=== PATIENT | female | born 1975 | race Caucasian/White ===

== ENCOUNTER → 2018-11-15 22:51 | Outpatient (CLI) | payer OTHER, SELFPAY ==
[2016-08-14 06:36] VITALS: BMI 48.6
[2018-11-20 08:43] LABS: HPV Reflexed? NOT INDICATED
--- OUTSIDE RECORDS SUMMARY | 2019-02-17 06:34 | XMS RPT_ITS ---
:1975 Author Organization [facility] Care Team Providers Name Role Phone Shae Choudhary Attending Unavailable Shae Choudhary Referring Unavailable PROBLEMS PROBLEMS DATE TYPE CONDITION / CODE ATTENDING STATUS SOURCE 11/16/2018 Unknown Z01.419 - Encounter Ami Choudhary for gynecological [facility] (general) (routine) Repository without abnormal findings / Z01.419(ICD-10) PROCEDURES PROCEDURES No Procedure Records FoundRESULTS RESULTS PAP I-G W/RFX HRHPV Collected: 11/15/2018 Status: F Source: YULISSA 4:15 PM [facility] REPOSITORY Order Comment: CYTOLOGY INFORMATION: - CLINICAL INFORMATION: - DATE LMP/MENOPAUSE: 2017 LMP - COLLECTION VIAL: Thin Prep Vial - CHILD ADVOCATE SOURCE: CERVICAL/ENDOCERVICAL/VAGINAL - COLLECTION TECHNIQUE: BRUSH/SPATULA Specimen Comment: [id number] Specimen Comment: Source.............Cervix;Endocervix;Vagina Specimen Comment: Dates / Results....LMP:2017 Specimen Comment: No. of containers..01 ThinPrep Vial TYPE CODE TESTS RESULT OUT OF RANGE REFERENCE UNITS LAB L7400.0800 . Normal DIAGN Comment Result Comment: NEGATIVE FOR INTRAEPITHELIAL LESION AND MALIGNANCY. THIS SPECIMEN WAS RESCREENED PART OF OUR A R SPECIALIST PROGRAM. LAB L7400.0900 . Normal ADEQ Comment Result Comment: Satisfactory for evaluation. Endocervical and/or squamous metaplastic cells (endocervical component) are present. LAB L7400.1400 . Normal PERFORM Comment Result Comment: Yue Hicks, Technical Staff Engineer (ASCP) LAB L7400.1500 . Normal QC Comment REV Result Comment: Conchis Man, Supervisory Technical Staff Engineer (ASCP) LAB L7400.2575 . Normal TEST METHOD Comment Result Comment: This liquid based ThinPrep(R) pap test was screened with the use of an image guided system. LAB L7400.2600 . Normal . COMM LAB L7400.2700 . Normal PAPSMR Comment Result Comment: The Pap smear is a screening test designed to aid in the detection of premalignant and malignant conditions of the uterine cervix. It is not a diagnostic procedure and should not be used as the sole means of detecting cervical cancer. Both false-positive and false-negative reports do occur. LAB L7400.2800 . Normal HPV RFLX Comment Result Comment: The HPV DNA reflex criteria were not met with this specimen result therefore, no HPV testing was performed. Performed at: [facility] [id number] Education Associate: Nolvia Wadsworth MD, Phone: [phone] Performed By: #### L7400.0350 #### [facility] (refer to report for specific site) refer to report for address and phone number ALLERGIES ALLERGIES DATE TYPE / CODE NAME / CODE REACTION SEVERITY SOURCE 08/07/2016 Drug Penicillins/ Unknown Unknown [facility] Allergy/4160 [id number]([place] [address](SNOMED XNORM) Repository CT) 08/07/2016 Drug adhesive/F00 SKIN BREAKDOWN Unknown [facility] Allergy/4160 [id number]([place] [address](SNOMED RM) Repository CT) 08/07/2016 Drug quetiapine/F EXTREMELY DROWSY Unknown [facility] Allergy/4160 [id number]([place] [address](SNOMED NORM) Repository CT) 08/07/2016 Drug latex/[id number] Unknown Unknown [facility] Allergy/4160 8921(RXNORM) [facility](SNOMED Repository CT) 08/07/2016 Drug escitalopram Unknown Unknown [facility] Allergy/4160 /[id number]( [place] [address](SNOMED RXNORM) Repository CT) ENCOUNTERS ENCOUNTERS ADMIT/DISCHARGE ACCOUNT ADMITTING ENCOUNTER LOCATION SOURCE NUMBER CLASS 11/15/2018 [id number] [facility] Repository PAYERS PAYERS ENCOUNTER GUARANTOR PAYER SUBSCRIBER SOURCE 11/15/2018 WEI Forrester Primary WEI [facility] [id number] CARMEN Insurance:AULTCAREBobby LOERAB: [place], [place] Number: [id number] [facility] [address]Ozl: [phone] [phone] Repository [phone] () Date:[id number] [address] [place] [phone]: 11/15/2018 Secondary NOT GIVENLORRIE Del Rosario Insurance:SELF PAY [facility] Number: Effective Repository Date:2018-11-15
== END ==
PROVIDERS: Referring Provider Nurse Practitioner Adult Health; Visit Provider Nurse Practitioner Adult Health
DX: Z01.419 Encounter for gynecological examination (general) (routine) without abnormal findings (principal)
CPT/HCPCS: 88175; G0145

== ENCOUNTER → 2019-03-13 16:45 | Outpatient (CLI) | payer OTHER, SELFPAY ==
[2016-08-14 06:36] VITALS: BMI 48.6
--- NOTE | 2019-03-13 16:51 | RAD_ITS ---
STUDY: X-RAY - RIGHT KNEE REASON FOR EXAM: Female, 43 years old. Pain, decreased range of motion TECHNIQUE: 4 view(s) of the knee. COMPARISON: None. FINDINGS: Normal visualized distal femur. Normal visualized proximal tibia and fibula. Normal proximal tibiofibular articulation. There is mild degenerative arthrosis of the medial femorotibial compartment. Normal lateral femorotibial compartment. Normal patellofemoral articulation. The soft tissue structures are unremarkable. RAD/Knee 4 or More Views IMPRESSION: Medial compartment arthrosis Electronically Signed: Kevin Salgado MD at 19:05 EDT , Service support ,
== END ==
PROVIDERS: Family Provider Family Medicine; PCP Family Medicine; Referring Provider Family Medicine; Visit Provider Family Medicine
DX: M25.561 Pain in right knee (principal)
CPT/HCPCS: 73564

== ENCOUNTER → 2019-11-30 07:21 | Outpatient (CLI) | payer OTHER, SELFPAY ==
--- NOTE | 2019-11-30 07:26 | MRI_ITS ---
STUDY: MRI RIGHT KNEE REASON FOR EXAM: Female, 44 years old. right knee pain, painful to bend knee, most pain posterior TECHNIQUE: Standardized fat and water weighted pulse sequences were obtained in all 3 orthogonal planes. COMPARISON: Right knee x-ray dated March 13, 2019 FINDINGS: Focal irregularity and signal abnormality is present at the root insertion of the posterior horn of the medial meniscus. No demonstrated tear. Normal anterior horn and body. There is near full-thickness loss of cartilage over the central weightbearing aspect of the medial femoral condyle. The tibial plateau cartilage is mildly to moderately thinned. Small peripheral spurs and mild subchondral cystic changes are present. Normal medial collateral ligamentous complex (MCL). Normal distal semimembranosus, gracilis and semitendinosus tendons. Normal lateral meniscus. Normal hyaline cartilage of the lateral femorotibial compartment. Normal lateral femoral condyle and tibial plateau. Normal proximal tibiofibular articulation. Normal lateral collateral (fibular) ligament. Normal popliteus tendon. Normal biceps femoris tendon. There is edema with swelling and loss of definition of the of the ACL fascicles, producing a celery stick appearance, with preservation of the continuity of fibers, consistent with mucoid cystic degeneration. Normal posterior cruciate ligament (PCL). Normal congruent patellofemoral articulation. Normal hyaline cartilage of the patellofemoral compartment. Normal medial and lateral patellar retinaculum. Normal quadriceps tendon. Normal patellar tendon. Normal Hoffa''s fat pad. There is a small volume joint effusion. The soft tissues are unremarkable. The otherwise visualized osseous structures are unremarkable. MRI/Lower Ext Joint Only (Routine) IMPRESSION: 1. Focal irregularity and signal abnormality is present at the root insertion of the posterior horn of the medial meniscus. No demonstrated tear. 2. There is near full-thickness loss of cartilage over the central weightbearing aspect of the medial femoral condyle. 3. Mild osteoarthritis of the medial compartment. 4. 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 Electronically Signed: James Alcocer MD at 17:02 EST , Service support ,
== END ==
PROVIDERS: Family Provider Family Medicine; PCP Family Medicine; Referring Provider Family Medicine; Visit Provider Family Medicine
DX: M25.561 Pain in right knee (principal)
CPT/HCPCS: 73721

== ENCOUNTER → 2020-01-11 08:14 | Outpatient (CLI) | payer OTHER, SELFPAY ==
[2020-01-11 10:37] LABS: ALB/GLOB Ratio 1.1 RATIO (0.9-2.4); AST(SGOT) 50 U/L (15-37); Alanine Aminotransfer ALT/SGPT 95 U/L (13-56); Albumin, Serum 4.2 g/dL (3.2-5.0); Alkaline Phosphatase 109 U/L (45-117); Anion Gap 8 (5-15); BUN 14 mg/dL (7-18); BUN/Creat Ratio 16.2 RATIO (10-20); Calcium,Total 9.7 mg/dL (8.5-10.1); Chloride 105 mmol/L (98-107); Cholesterol 259 mg/dL (200); Creatinine, Serum 0.86 mg/dL (0.55-1.02); EST Glomerular Filtration Rate 76 mL/min (>60); Est Glom Filt Rate - Afr Amer 92 mL/min (>60); Globulin 3.8 g/dL (2.2-4.2); Glucose 142 mg/dL (74-106); High Density Lipoprotein 49 mg/dL; Sodium Level 137 mmol/L (136-145); Thyroid Stim Hormone (TSH) 1.78 uIU/mL (0.358-3.74); Triglycerides 318 mg/dL; Very Low Density Lipoprotein 64 mg/dL (5-40)
== END ==
PROVIDERS: PCP Family Medicine; Referring Provider Family Medicine; Visit Provider Family Medicine
DX: E11.9 Type 2 diabetes mellitus without complications (principal)
CPT/HCPCS: 36415; 80053; 80061; 84443

== ENCOUNTER 2020-06-03 06:02 | Day surgery (SDC) | payer OTHER, SELFPAY ==
--- NOTE | 2020-05-30 16:03 | EKG12_ITS ---
Test Reason : PRE OP Blood Pressure : / mmHG Vent. Rate : 088 BPM Atrial Rate : 088 BPM P-R Int : 188 ms QRS Dur : 100 ms QT Int : 346 ms P-R-T Axes : 051 038 019 degrees QTc Int : 418 ms Normal sinus rhythm Normal ECG Confirmed by LIZZY HACKETT ([id number]), editor sound STEWART GANDHI ([id number]) on 06/03/2020 2:08:45 PM Referred By: Rafael Ann Confirmed By:LIZZY HACKETT
[2020-05-30 16:12] LABS: Hematocrit 46.8 % (37-47); Hemoglobin 15.3 g/dL (12.0-15.0); Mean Corp Hgb Conc 32.7 g/dL (32-36); Mean Corpuscular Volume 88.6 fL (81-99); Platelet Count 290 K/mm3 (150-450); RBC Distribution Width CV 12.3 % (11.6-14.6); RBC Distribution Width SD 40.1 fl (35.1-43.9); Red Blood Count 5.28 M/mm3 (4.2-5.4); White Blood Count 10.3 K/mm3 (4.4-11.0)
[2020-05-30 16:40] LABS: Anion Gap 5 (5-15); BUN 26 mg/dL (7-18); BUN/Creat Ratio 25.7 RATIO (10-20); Calcium,Total 9.4 mg/dL (8.5-10.1); Chloride 105 mmol/L (98-107); Creatinine, Serum 1.01 mg/dL (0.55-1.02); EST Glomerular Filtration Rate 63 mL/min (>60); Est Glom Filt Rate - Afr Amer 77 mL/min (>60); Glucose 121 mg/dL (74-106); Sodium Level 135 mmol/L (136-145)
[2020-05-30 16:56] LABS: Hemoglobin A1c 7.9 % (3.8-5.6)
[2020-06-03 06:00] VITALS: BP 122/74; PULSE 86; RESP 16; TEMP 35.9; O2SAT 93; BMI 46.7
[2020-06-03 06:32] LABS: Internal QC Validated? YES +Cl - CLEAR BKGD; Pregnancy, Urine Negative Negative
[2020-06-03 06:55] LABS: Bedside Glucose 142 mg/dL (70-110)
[2020-06-03] MEDS: Lactated Ringers 1,000 ML 100 ML IV ×2 (07:05→08:25)
--- NOTE | 2020-06-03 07:38 | PCM.DC ---
You will use the following diet at home:: Regular Your food should be the consistency of: Regular Discharge Activity: Return to Normal Activity, - - No noseblowing Additional Activity Instructions:: Start saline nasal spray...3 sprays each nostril 3x/day... on 06/04/20 Allergies/Adverse Reactions: Allergies adhesive Allergy (Verified 05/27/20 10:04) SKIN BREAKDOWN Penicillins Allergy (Verified 05/27/20 10:04) Unknown escitalopram [From Lexapro] Adverse Reaction (Verified 05/27/20 10:04) Unknown latex Adverse Reaction (Verified 05/27/20 10:04) Unknown quetiapine [From Seroquel] Adverse Reaction (Verified 05/27/20 10:04) EXTREMELY DROWSY Medications to take at Discharge Albuterol Inhaler [Ventolin Hfa (SP)] 2 puff INHALATION Q4H PRN PRN 08/07/16 Oxcarbazepine [Trileptal] 300 mg PO QHS 08/07/16 Oxcarbazepine [Trileptal] 900 mg PO DAILY 08/07/16 Triamcinolone Acetonide [Nasacort Aq Nasal [place]] 2 spray NASAL DAILY 08/07/16 buPROPion XL [Wellbutrin Xl] 150 mg PO QHS 08/07/16 Atorvastatin Calcium [Lipitor] 40 mg PO QHS 05/27/20 Dulaglutide [Trulicity] 0.75 mg SQ SA 05/27/20 Empagliflozin [Jardiance] 25 mg PO DAILY 05/27/20 Lisinopril [Prinivil] 10 mg PO QHS 05/27/20 Meloxicam [Mobic] 15 mg PO DAILY 05/27/20 Montelukast [Singulair] 10 mg PO QHS 05/27/20 Omeprazole Magnesium [Prilosec Otc] 20 mg PO DAILY 05/27/20 busPIRone [Buspar] 15 mg PO TID 05/27/20 Orders to be completed after discharge: 12 Lead EKG [CVS] Time Frame: 05/27/20, Facility: [facility], Location: Cardiovascular Services Primary Care Physician: Hussain Jernigan MD [Primary Care Provider] - Test Results: Test results from this visit will be discussed in further detail at your follow-up appointment, if applicable.
[2020-06-03] MEDS: Mupirocin Ointment 22gm Tube 1 APPLIC (08:00)
[2020-06-03] MEDS: Oxymetazoline 0.05% 1 SPRAY SPRAY.BTL 15 SPRAY (08:00)
--- NOTE | 2020-06-03 08:12 | PCM.OPRPT ---
Report of Operation Date of Procedure: 06/03/20 Pre-Operative Diagnosis: nasal airway obstruction. inferior turbinate hypertrophy. acquired nasal deformity Post-Operative Diagnosis: same Surgery/Procedure Performed:: Bilateral submucous resection inferior turbinates. 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 She was placed in supine position on the operating table. He was given sufficient general anesthesia. The table was elevated 30 degrees. The nose was prepped and draped sterilely. 1% lidocaine with epinephrine was injected into the septum nasal floor anterior aspect of the inferior turbinates bilaterally. Nasal hair was trimmed with the scissors and removed. The Latera implant was aligned above the external valve and marked. The Lateral needle was inserted toward the septum and lateral to the lower lateral cartilage using a ball tipped probe for eversion. Next, the needle was placed in the supraperichondrial plane until it was driven to its intended location. The implant was deployed and held externally while the needle was removed. The same procedure was then performed on the left hand side. Visual inspection and palpation reveal perfect position of the implant bilaterally. Next, an incision was placed anterior aspect of the right inferior turbinate at the mucocutaneous junction. A submucous plane established with a Jennings elevator. Submucous resection was carried out using a microdebrider. Afrin pledgets were used for hemostasis. The incision was then closed with 4-0 chromic. Then, an incision was placed at the anterior aspect of the left inferior turbinate at the mucocutaneous junction. A submucous plane established using a Lavon elevator. Submucous resection was carried out using a microdebrider. The incision was then closed with 4-0 chromic. Afrin and Ba were used for hemostasis. Morales nasal splints were applied to each side of the septum and sewn through and through with 3-0 silk. The patient was then awoken and brought to the recovery room in stable condition. Blood loss minimal, replacement none. Sponge, needle count, sponge count, were correct at the end of this procedure.
[2020-06-03 08:20] VITALS: BP 122/74; BP 130/81; PULSE 94; RESP 16; TEMP 36.2; O2SAT 94
[2020-06-03 08:30] VITALS: BP 122/74; BP 137/92; PULSE 90; RESP 16; O2SAT 94
[2020-06-03 08:45] VITALS: BP 122/74; BP 138/83; PULSE 88; RESP 16; O2SAT 91
[2020-06-03 08:45] LABS: Bedside Glucose 159 mg/dL (70-110)
[2020-06-03 09:00] VITALS: BP 122/74; BP 130/86; PULSE 85; RESP 16; TEMP 36.8; O2SAT 93
[2020-06-03 09:48] VITALS: BP 122/74; BP 140/93; PULSE 84; RESP 16; TEMP 36.6; O2SAT 92
== END 2020-06-03 09:50 | disposition home or self-care (01) ==
LOC: SDC 06:03 → AC 06:04
PROVIDERS: Anesthesiology; PCP Family Medicine; Referring Provider Otolaryngology; Visit Provider Otolaryngology
PROC: (CPT 30520; principal; 2020-06-03 07:15)
DX: J34.3 Hypertrophy of nasal turbinates (principal); J34.89 Other specified disorders of nose and nasal sinuses; M95.0 Acquired deformity of nose; Z11.59 Encounter for screening for other viral diseases; J45.909 Unspecified asthma, uncomplicated; E11.9 Type 2 diabetes mellitus without complications; E78.00 Pure hypercholesterolemia, unspecified; K21.9 Gastro-esophageal reflux disease without esophagitis; F32.9 Major depressive disorder, single episode, unspecified; F41.9 Anxiety disorder, unspecified; G47.30 Sleep apnea, unspecified; Z79.84 Long term (current) use of oral hypoglycemic drugs; Z79.899 Other long term (current) drug therapy; Z87.891 Personal history of nicotine dependence; Z91.19 Patient's noncompliance with other medical treatment and regimen
CPT/HCPCS: 00160; 30140; C9749; 36415; 80048; 81025; 82962; 83036; 85027; 87635; 93005; G2023; J7120; J2405; U0003

== ENCOUNTER → 2020-10-09 09:04 | Outpatient (CLI) | payer OTHER, SELFPAY ==
[2020-10-09 10:45] LABS: ALB/GLOB Ratio 1.1 RATIO (0.9-2.4); AST(SGOT) 37 U/L (15-37); Alanine Aminotransfer ALT/SGPT 53 U/L (13-56); Albumin, Serum 4.1 g/dL (3.2-5.0); Alkaline Phosphatase 109 U/L (45-117); Anion Gap 7 (5-15); BUN 13 mg/dL (7-18); BUN/Creat Ratio 15.8 RATIO (10-20); Calcium,Total 9.2 mg/dL (8.5-10.1); Chloride 104 mmol/L (98-107); Cholesterol 166 mg/dL (200); Creatinine, Serum 0.82 mg/dL (0.55-1.02); EST Glomerular Filtration Rate 80 mL/min (>60); Est Glom Filt Rate - Afr Amer 97 mL/min (>60); Globulin 3.6 g/dL (2.2-4.2); Glucose 102 mg/dL (74-106); High Density Lipoprotein 46 mg/dL; Potassium 3.8 mmol/L (3.5-5.1); Protein, Total 7.7 g/dL (6.4-8.2); Sodium Level 136 mmol/L (136-145); Triglycerides 211 mg/dL; Very Low Density Lipoprotein 42 mg/dL (5-40)
== END ==
PROVIDERS: PCP Family Medicine; Referring Provider Family Medicine; Visit Provider Family Medicine
DX: E11.9 Type 2 diabetes mellitus without complications (principal)
CPT/HCPCS: 36415; 80053; 80061

== ENCOUNTER → 2021-06-25 13:39 | Outpatient (CLI) | payer OTHER, SELFPAY ==
[2021-06-25 15:46] LABS: ALB/GLOB Ratio 1.1 RATIO (0.9-2.4); AST(SGOT) 52 U/L (15-37); Alanine Aminotransfer ALT/SGPT 86 U/L (13-56); Albumin, Serum 4.4 g/dL (3.2-5.0); Alkaline Phosphatase 106 U/L (45-117); Anion Gap 9 (5-15); BUN 14 mg/dL (7-18); BUN/Creat Ratio 17.4 RATIO (10-20); Calcium,Total 9.4 mg/dL (8.5-10.1); Chloride 102 mmol/L (98-107); Cholesterol 189 mg/dL (200); EST Glomerular Filtration Rate 82 mL/min (>60); Est Glom Filt Rate - Afr Amer 99 mL/min (>60); Globulin 3.9 g/dL (2.2-4.2); Glucose 92 mg/dL (74-106); High Density Lipoprotein 52 mg/dL; Potassium 3.9 mmol/L (3.5-5.1); Protein, Total 8.3 g/dL (6.4-8.2); Sodium Level 137 mmol/L (136-145); Thyroid Stim Hormone (TSH) 1.11 uIU/mL (0.358-3.74); Triglycerides 251 mg/dL; Very Low Density Lipoprotein 50 mg/dL (5-40)
== END ==
PROVIDERS: PCP Family Medicine; Referring Provider Family Medicine; Visit Provider Family Medicine
DX: E11.9 Type 2 diabetes mellitus without complications (principal)
CPT/HCPCS: 36415; 80053; 80061; 84443

== ENCOUNTER 2022-03-18 15:59 | Outpatient (CLI) | payer OTHER, SELFPAY ==
--- NOTE | 2022-03-18 16:04 | RAD_ITS ---
STUDY: X-RAY - LUMBAR SPINE REASON FOR EXAM: Female, 46 years old. backache TECHNIQUE: 5 view(s) of the lumbar spine were obtained. COMPARISON: None FINDINGS: Vertebral bodies are normal height. No definite fracture demonstrated. No subluxation. Disc space narrowing and osteophytes mostly at the lower lumbar levels. Degenerative endplate changes also at the lower thoracic levels with osteophytes. Facet arthropathy predominantly at L4-5 and L5-S1. No paravertebral soft tissue mass identified. RAD/L/S Spine Min 4 Views IMPRESSION: Degenerative changes. No evidence of fracture or subluxation. Electronically Signed: Sosa Sheehan MD at 2:42 EDT ,
[2022-03-18 18:07] LABS: Erythrocyte Sedimentation Rate 8 mm/hr (0-30)
[2022-03-18 18:09] LABS: Hematocrit 46.4 % (37-47); Hemoglobin 15.4 g/dL (12.0-15.0); Mean Corp Hgb Conc 33.2 g/dL (32-36); Mean Corpuscular Hgb 28.5 pg (27.0-32.0); Mean Corpuscular Volume 85.8 fL (81-99); Mean Platelet Vol. 10.3 fl (6.2-12.0); Platelet Count 257 K/mm3 (150-450); RBC Distribution Width CV 12.1 % (11.6-14.6); RBC Distribution Width SD 37.9 fl (35.1-43.9); Red Blood Count 5.41 M/mm3 (4.2-5.4); White Blood Count 9.2 K/mm3 (4.4-11.0)
[2022-03-18 18:15] LABS: Vitamin D,25 Hydroxy 13.1 ng/mL
[2022-03-18 18:21] LABS: ALB/GLOB Ratio 1.1 RATIO (0.9-2.4); AST(SGOT) 29 U/L (15-37); Alanine Aminotransfer ALT/SGPT 57 U/L (13-56); Albumin, Serum 4.2 g/dL (3.2-5.0); Alkaline Phosphatase 105 U/L (45-117); Anion Gap 6 (5-15); BUN 20 mg/dL (7-18); BUN/Creat Ratio 21.5 RATIO (10-20); Calcium,Total 9.5 mg/dL (8.5-10.1); Chloride 102 mmol/L (98-107); Cholesterol 191 mg/dL (200); Creatinine, Serum 0.93 mg/dL (0.55-1.02); EST Glomerular Filtration Rate 69 mL/min (>60); Est Glom Filt Rate - Afr Amer 84 mL/min (>60); Globulin 3.8 g/dL (2.2-4.2); Glucose 109 mg/dL (74-106); High Density Lipoprotein 49 mg/dL; Potassium 4.1 mmol/L (3.5-5.1); Sodium Level 137 mmol/L (136-145); Thyroid Stim Hormone (TSH) 1.42 uIU/mL (0.358-3.74); Triglycerides 290 mg/dL; Very Low Density Lipoprotein 58 mg/dL (5-40)
== END 2022-03-18 23:59 | disposition home or self-care (01) ==
PROVIDERS: PCP Family Medicine; Referring Provider Family Medicine; Visit Provider Family Medicine
DX: M54.9 Dorsalgia, unspecified (principal); E11.9 Type 2 diabetes mellitus without complications; M79.7 Fibromyalgia
CPT/HCPCS: 36415; 72110; 80053; 80061; 82306; 84443; 85027; 85652

== ENCOUNTER → 2022-10-05 | Outpatient (CLI) | payer OTHER, SELFPAY ==
[2022-10-05 18:03] LABS: ALB/GLOB Ratio 1.1 RATIO (0.9-2.4); AST(SGOT) 29 U/L (15-37); Alanine Aminotransfer ALT/SGPT 64 U/L (13-56); Alkaline Phosphatase 108 U/L (45-117); Anion Gap 10 (5-15); BUN 15 mg/dL (7-18); BUN/Creat Ratio 17.8 RATIO (10-20); Calcium,Total 9.4 mg/dL (8.5-10.1); Chloride 103 mmol/L (98-107); Cholesterol 152 mg/dL (200); Creatinine, Serum 0.84 mg/dL (0.55-1.02); EST Glomerular Filtration Rate 77 mL/min (>60); Est Glom Filt Rate - Afr Amer 93 mL/min (>60); Globulin 3.7 g/dL (2.2-4.2); Glucose 119 mg/dL (74-106); High Density Lipoprotein 48 mg/dL; Potassium 3.5 mmol/L (3.5-5.1); Protein, Total 7.7 g/dL (6.4-8.2); Sodium Level 138 mmol/L (136-145); Triglycerides 217 mg/dL; Very Low Density Lipoprotein 43 mg/dL (5-40)
[2022-10-05 18:04] LABS: Vitamin D,25 Hydroxy 48.3 ng/mL
== END | disposition home or self-care (01) ==
LOC: MFPLAB 16:10
PROVIDERS: PCP Family Medicine; Referring Provider Family Medicine; Visit Provider Family Medicine
DX: E11.9 Type 2 diabetes mellitus without complications (principal); R79.89 Other specified abnormal findings of blood chemistry
CPT/HCPCS: 36415; 80053; 80061; 82306

== ENCOUNTER → 2022-11-11 | Outpatient (CLI) | payer OTHER, SELFPAY ==
--- NOTE | 2022-11-11 15:37 | BI_ITS ---
MAMMOGRAPHY - BILATERAL SCREENING REASON FOR EXAM: Female, 46 years old. Routine annual screening examination. PERTINENT HISTORY: Non-contributory. TECHNIQUE: Digital bilateral breast henry (3D mammographic acquisition) in the CC and MLO projections. 2-D mediolateral oblique (MLO) and craniocaudad (CC) views of both breasts were obtained. CAD: Full Field Digital Mammography with Computer Added Detection was performed. COMPARISON: None. Baseline examination. FINDINGS: Breast Composition: The breasts are almost entirely fatty. There are no dominant masses or suspicious calcifications. No other significant abnormalities are identified. BI/SCRN MAMM (CAD)W/HENRY BILAT IMPRESSION: Negative screening mammogram. Yearly followup mammogram recommended. (A) ASSESSMENT CATEGORY: BIRADS Category 1: Negative. A letter regarding these results will be sent to the patient by the facility within 30 days. Approximately 10% of breast cancers are not detected by mammography. A normal mammogram should not delay biopsy of a clinically suspicious abnormality. [id number] Electronically Signed: Renato Javier MD at 8:19 EST ,
== END | disposition home or self-care (01) ==
LOC: OPBI 15:35
PROVIDERS: PCP Family Medicine; Visit Provider Family Medicine
DX: Z12.31 Encounter for screening mammogram for malignant neoplasm of breast (principal)
CPT/HCPCS: 77063; 77067

== ENCOUNTER → 2023-06-17 | Outpatient (CLI) | payer OTHER, SELFPAY ==
[2023-06-17 17:56] LABS: Hematocrit 48.9 % (37-47); Hemoglobin 15.9 g/dL (12.0-15.0); Mean Corp Hgb Conc 32.5 g/dL (32-36); Mean Corpuscular Hgb 28.3 pg (27.0-32.0); Mean Corpuscular Volume 87.2 fL (81-99); Mean Platelet Vol. 10.6 fl (6.2-12.0); Platelet Count 254 K/mm3 (150-450); RBC Distribution Width CV 12.3 % (11.6-14.6); RBC Distribution Width SD 38.9 fl (35.1-43.9); Red Blood Count 5.61 M/mm3 (4.2-5.4); White Blood Count 11.2 K/mm3 (4.4-11.0)
[2023-06-17 18:15] LABS: Vitamin D,25 Hydroxy 46.6 ng/mL
[2023-06-17 18:20] LABS: Erythrocyte Sedimentation Rate 16 mm/hr (0-30)
[2023-06-17 18:30] LABS: ALB/GLOB Ratio 1.1 RATIO (0.9-2.4); AST(SGOT) 38 U/L (15-37); Alanine Aminotransfer ALT/SGPT 87 U/L (13-56); Alkaline Phosphatase 96 U/L (45-117); Anion Gap 7 (5-15); BUN 15 mg/dL (7-18); BUN/Creat Ratio 17.5 RATIO (10-20); Calcium,Total 9.2 mg/dL (8.5-10.1); Chloride 104 mmol/L (98-107); Cholesterol 128 mg/dL (200); Creatinine, Serum 0.86 mg/dL (0.55-1.02); EST Glomerular Filtration Rate 76 mL/min (>60); Est Glom Filt Rate - Afr Amer 92 mL/min (>60); Ferritin 247 ng/mL (8-252); Globulin 3.8 g/dL (2.2-4.2); Glucose 113 mg/dL (74-106); High Density Lipoprotein 45 mg/dL; Protein, Total 7.8 g/dL (6.4-8.2); Sodium Level 136 mmol/L (136-145); Thyroid Stim Hormone (TSH) 1.06 uIU/mL (0.358-3.74); Triglycerides 152 mg/dL; Very Low Density Lipoprotein 30 mg/dL (5-40)
[2023-06-30 16:10] LABS: Erythropoietin 5.7 mIU/mL (2.6-18.5)
== END | disposition home or self-care (01) ==
LOC: MFPLAB 16:24
PROVIDERS: PCP Family Medicine; Visit Provider Family Medicine
DX: R71.8 Other abnormality of red blood cells (principal)
CPT/HCPCS: 36415; 80053; 80061; 81270; 82306; 82668; 82728; 84443; 85027; 85652

== ENCOUNTER → 2024-08-14 | Outpatient (CLI) | payer OTHER, SELFPAY ==
[2024-08-14 17:41] LABS: Hematocrit 45.9 % (37-47); Hemoglobin 14.5 g/dL (12.0-15.0); Mean Corp Hgb Conc 31.6 g/dL (32-36); Mean Corpuscular Hgb 28.1 pg (27.0-32.0); Mean Platelet Vol. 10.6 fl (6.2-12.0); Platelet Count 267 K/mm3 (150-450); RBC Distribution Width CV 12.6 % (11.6-14.6); RBC Distribution Width SD 41.3 fl (35.1-43.9); Red Blood Count 5.16 M/mm3 (4.2-5.4); White Blood Count 9.5 K/mm3 (4.4-11.0)
[2024-08-14 18:28] LABS: ALB/GLOB Ratio 1.1 RATIO (0.9-2.4); AST(SGOT) 24 U/L (15-37); Alanine Aminotransfer ALT/SGPT 55 U/L (13-56); Albumin, Serum 4.1 g/dL (3.2-5.0); Alkaline Phosphatase 90 U/L (45-117); Anion Gap 9 (5-15); BUN 16 mg/dL (7-18); BUN/Creat Ratio 19.7 RATIO (10-20); Calcium,Total 9.9 mg/dL (8.5-10.1); Chloride 104 mmol/L (98-107); Cholesterol 149 mg/dL (200); Creatinine, Serum 0.81 mg/dL (0.55-1.02); EST Glomerular Filtration Rate 80 mL/min (>60); Est Glom Filt Rate - Afr Amer 97 mL/min (>60); Globulin 3.6 g/dL (2.2-4.2); Glucose 95 mg/dL (74-106); High Density Lipoprotein 60 mg/dL; Potassium 3.9 mmol/L (3.5-5.1); Protein, Total 7.7 g/dL (6.4-8.2); Sodium Level 138 mmol/L (136-145); Triglycerides 130 mg/dL; Very Low Density Lipoprotein 26 mg/dL (5-40)
== END | disposition home or self-care (01) ==
LOC: MFPLAB 16:07
PROVIDERS: PCP Family Medicine; Visit Provider Family Medicine
DX: R71.8 Other abnormality of red blood cells (principal); E11.69 Type 2 diabetes mellitus with other specified complication; E11.59 Type 2 diabetes mellitus with other circulatory complications
CPT/HCPCS: 36415; 80053; 80061; 85027

== ENCOUNTER → 2025-06-04 | Outpatient (CLI) | payer OTHER, SELFPAY | END | disposition home or self-care (01) | LOC: OPBI 14:07 | PROVIDERS: PCP Family Medicine; Referring Provider Family Medicine; Visit Provider Family Medicine | DX: Z12.31 Encounter for screening mammogram for malignant neoplasm of breast (principal) | CPT/HCPCS: 77063; 77067 ==